=== PATIENT | female | born 1950 | race Caucasian/White ===

== ENCOUNTER 2024-10-14 09:42 | Day surgery (SDC) | payer OTHER ==
[2024-10-09 13:57] LABS: Absolute Basophils 0.2 K/uL (0-0.5); Absolute Eosinophils 0.8 K/uL (0-0.5); Absolute Lymphocytes (CBC) 2.5 K/uL (0.7-4.9); Absolute Monocytes 0.9 K/uL (0.1-1.3); Absolute Neutrophil 12.6 K/uL (1.8-8.0); Eosinophils % 4.5 % (0-4.4); Hematocrit 35.7 % (36.0-45.0); Hemoglobin 11.5 g/dL (12.0-15.0); Lymphocytes % 14.7 % (15.3-44.8); MCH 26.5 pg (27.0-35.0); MCHC 32.3 g/dL (32.0-36.0); MPV 6.3 fL (7.6-11.3); Monocytes % 5.3 % (3.3-12.3); Neutrophils % 74.5 % (41.7-73.7); Platelets 597 thou/uL (152-406); RBC Red Blood Cell Count 4.35 M/uL (3.86-4.86); Red Cell Distribution Width 15.1 % (12.1-15.2)
[2024-10-09 14:00] LABS: PT Prothrombin Time 11.9 SECONDS (9.4-12.5); Protime INR 1.06
[2024-10-09 14:11] LABS: Anion Gap 9.6 mEq/L (5.0-15.0); Potassium 4.6 mEq/L (3.5-5.1)
--- NOTE | 2024-10-09 14:41 | RAD REPORT ---
Procedure: Chest Pa And Lat (2 Views) HISTORY: Preop for genitourinary surgery. Hypertension COMPARISON: none FINDINGS: The lungs appear clear of acute infiltrate. No significant pleural effusion noted. The heart is normal size. IMPRESSION: No acute abnormality is displayed.
[2024-10-09 15:23] LABS: Band Neutrophils 4 % (0-1); Differential Total Cells Count 100; Eosinophils 9 % (0-3); Lymphocytes 15 % (15-42); Monocytes 6 % (0-10); Segmented Neutrophils 65 % (40-80)
[2024-10-09 15:24] LABS: Blood Morphology Comment NOT SEEN (NOT SEEN); Platelet Estimate INCR
--- NOTE | 2024-10-13 11:11 | EKG ---
Test Date: 2024-10-09 Test Time: 14:40:40 Caul Fat Puller: LEVY MEASUREMENT RESULTS: Intervals: Rate: 82 WV: 152 QRSD: 96 QT: 388 QTc: 453 [place]: P: 54 WV: 152 QRS: -6 T: 90 INTERPRETIVE STATEMENTS: Normal sinus rhythm Inferior infarct, age undetermined Abnormal ECG No previous ECG available for comparison Electronically Signed On 10-13-24 11:07:48 [employer]LEY [employer]IN[employer] by Giorgio Vicente
[2024-10-14] MEDS: NA CHLORIDE 0.9% 1,000 ML ONE (10:48)
[2024-10-14] MEDS ORDERED: FENTANYL CITR 100 MCG/2 ML ONE (13:54)
[2024-10-14] MEDS ORDERED: MIDAZOLAM HCL 2 MG/2 ML INJ ONE (13:54)
[2024-10-14] MEDS ORDERED: LIDOCAINE 1% MPF 5 ML VIAL ONE (13:54)
[2024-10-14] MEDS ORDERED: KETOROLAC 30 MG/ML INJ ONE (13:54)
[2024-10-14] MEDS ORDERED: ONDANSETRON 4 MG/2 ML VIAL ONE (13:54)
[2024-10-14] MEDS ORDERED: propofoL 200 MG/20 ML VIAL IV ONE (13:54)
[2024-10-14] MEDS ORDERED: EPHEDRINE SULF 50 MG/ML VIAL ONE (13:55)
[2024-10-14] MEDS ORDERED: GENTAMICIN 80 MG/100 ML BAG 240 MG/300 ML BAG IV ONE (14:07)
[2024-10-14] MEDS ORDERED: CODEINE 30MG/APAP 300MG TAB PO PRN (15:13)
[2024-10-14] MEDS ORDERED: PHENAZOPYRIDINE 100MG TAB PO ONE ×2 (15:13→16:06)
--- NOTE | 2024-10-14 15:31 | P.OP ---
Date of Service: 10/14/24 Preoperative diagnoses: Bilateral hydronephrosis Recurrent UTIs Postoperative diagnoses: Chronic cystitis Recurrent UTIs Bilateral ureteral obstruction apparently due to extrinsic compression Bilateral pelviectasis Principal procedures: Cystoscopy Right retrograde pyelography Right 7 [place] ureteral stent placement Left retrograde pyelography Left 7 [place] by 24 cm ureteral stent placement Urethral Chopra catheter exchange Indication for procedure: 73-year-old woman seen by me with bilateral hydronephrosis associated with large volume incomplete emptying and evidence of chronic cystitis with recurrent UTIs. Despite prolonged catheterization, ultrasound suggest the presence of ongoing hydronephrosis. As a result, she required definitive operative evaluation and management. Procedure note: The patient was consented in the preoperative holding area before being transferred to the operative suite where general anesthesia was induced. She was given a prescription for ciprofloxacin 500 mg p.o. twice daily, which she started yesterday and took a dose this morning. As a result, she was given an additional 2 to 3 mg/kg of IV gentamicin, 240 mg, as perioperative prophylaxis. Pneumoboots were provided for DVT prophylaxis. She was placed in the lithotomy position, padded and secured to the table appropriately. Her genitalia was prepped with Hibiclens and she was draped in standard fashion. The case was begun using a 22 [place] rigid cystoscope to traverse the urethra and into her bladder with ease. The bladder was decompressed of fluid and urine and surveyed in its entirety filled with sterile saline. There was evidence of mild ongoing chronic cystitis throughout the bladder. Bladder was not markedly trabeculated and there were no cellules, mucosal lesions, foreign bodies or stones. The ureteral orifices were orthotopic in location. I cannulated the right ureteral orifice first using the tip of a 5 [place] ureteral access catheter with ease. Right retrograde pyelography: Using a 70: 30 mixture of Omnipaque and saline, contrast was injected via the lumen of the 5 [place] ureteral access catheter and did propagate into the distal before making a slow transition into the mid and ultimately into the proximal ureter before finally entering the renal pelvis and calyces in a markedly delayed fashion. While there was evidence of some mild pelviectasis, there was no significant caliectasis as they were sharp without blunting. There was no evidence of a filling defect anywhere along the course of the ureters or within the renal pelvis or calyces. In fact, the pelvis did decompress relatively appropriately. Ureteral dilatation was noted. As a result, I passed a sensor wire via the 5 [place] ureteral access catheter and coiled the wire in the upper pole calyx of the right kidney. Over the wire, I passed a 7 [place] by 24 cm double-J ureteral stent with a coil that did coil within the renal pelvis. An additional coil was formed in her bladder. I then turned my attention to the patient's left side. I similarly cannulated the left ureteral orifice using the tip of the 5 [place] ureteral access catheter and there was no obstruction. Left retrograde pyelography: Using a 70: 30 mixture of Omnipaque and saline, contrast was injected via the lumen of the 5 [place] ureteral access catheter and did propagate into the distal before making a slow transition into the mid and ultimately into the proximal ureter before finally entering the renal pelvis and calyces in a markedly delayed fashion. While there was evidence of some mild pelviectasis, there was no significant caliectasis as they were sharp without blunting. There was no evidence of a filling defect anywhere along the course of the ureters or within the renal pelvis or calyces. In fact, the pelvis did decompress relatively appropriately, but there was a nodular appearance along the course of the ureter with ureteral dilatation noted. As a result, I passed a sensor wire via the 5 [place] ureteral access catheter and coiled the wire in the upper pole calyx of the left kidney. Over the wire, I passed a 7 [place] by 24 cm double-J ureteral stent with a coil that did coil within the renal pelvis. An additional coil was formed in her bladder. I then placed a new 16 [place] urethral Chopra catheter into her bladder with ease and placed 15 cc of sterile water in the balloon. The catheter was allowed to decompress and then connected to a floor bag. She was taken out of the lithotomy position, awakened from general anesthesia, transferred to a stretcher, and then transferred to the recovery room in good condition. Complications: None Discharge disposition: Given the extrinsic ureteral compression observed bilaterally, I suspect the presence of retroperitoneal fibrosis. To that end, I would like for her to obtain an MRI of the abdomen and pelvis with and without contrast specifically to assess for extrinsic compression of the ureters and rule out retroperitoneal fibrosis. Thereafter, she may follow-up with me in the urology clinic to review the MRI and determine whether we will plan immediate cystoscopy with bilateral stents extraction or subsequent definitive management like ureterolysis. Further, she will be given a voiding trial prior to discharge from the recovery room. Regardless as to whether she is successful with the voiding trial, surveillance urine culture should be obtained approximately 2 weeks prior to scheduled follow-up with me in case we will plan to remove the stents; so that we can determine appropriate antimicrobial prophylaxis.
--- NOTE | 2024-10-14 15:35 | RAD REPORT ---
EXAMUrography Retrograde CLINICAL HISTORY: Bilateral ureteral stent placement FINDINGS: A total of 19 images were sent to PACS, during a fluoroscopically guided retrograde urethrocystograp hy. No radiologist was involved in protocoling or performance of the study, and no radiologist was present for the duration of the procedure. No interpretation of the saved images will be provided. Total fluoroscopy time: 10.4 minutes
[2024-10-14 15:42] VITALS: BP 110/53; TEMP 97; O2SAT 95
== END 2024-10-14 16:40 | disposition home or self-care (01) ==
LOC: OR 09:42
PROVIDERS: ATTEND Urology
PROC: 0T788DZ Dilation of Bilateral Ureters with Intraluminal Device, Via Natural or Artificial Opening Endoscopic (ICD-10-PCS; principal; 2024-10-14 14:32)
DX: N13.30 Unspecified hydronephrosis (principal); N30.20 Other chronic cystitis without hematuria; N13.1 Hydronephrosis with ureteral stricture, not elsewhere classified; R33.9 Retention of urine, unspecified; Z87.440 Personal history of urinary (tract) infections
CPT/HCPCS: 93005; 87088; 85025; 87086; 80048; 36415; 85610; 82947 ×2; 87077 ×2; 87186 ×2; 71046; 74420; 52332; J2704; J2003; J2250; J3010; J2405; J7030; J1580

== ENCOUNTER 2025-02-15 18:47 | Inpatient (IN) | payer OTHER ==
--- OUTSIDE RECORDS SUMMARY | 2025-02-15 18:50 | XMS REPORT | Continuity of Care Document ---
Author Name Unknown Address [address] [facility] [address] [place] [address] [facility] Address [address] [facility] [address] [place] [address] Care Team Providers Care Strap Setter Name Role Phone Floresita Cooper Attending Clinician Unavailable FLORESITA COOPER Attending Clinician Unavailable CALVIN HOPE Attending Clinician Unavailable A_Byrd Attending Clinician Unavailable BEATRIZ TAVERAS Admitting Clinician Unavailable A_Byrd Admitting Clinician Unavailable Payers Payer Name Policy Type Policy Number Effective Date Expirati on Date Source [employer] (MEDICARE REPLACEMENT/ADVANTAGE - PPO) [id number] Problems Condition Name Condition Details Condition Category Status Onset Date Resolution Date Last Treatment Date Treating Clinician Comments Source Disorder of pancreas Disorder of Pancreas Problem Active 01-08 00:00: 00 [facility] Neurogenic urinary bladder Neurogenic Urinary Bladder Problem Active 01-08 00:00: 00 [facility] Congestive heart failure Congestive Heart Failure Problem Active 2023-10 00:00: 00 [facility] Recurrent urinary tract infection Recurrent Urinary Tract Infection Problem Active 2023-10 00:00: 00 [facility] Sepsis due to urinary tract infection Sepsis Due to Urinary Tract Infection Problem Active 03-18 00:00: 00 [facility] Unsteady when walking Unsteady When Walking Problem Active 01-16 00:00: 00 [facility] Mixed hyperlipid emia Mixed Hyperlipid emia Problem Active 12-18 00:00: 00 [facility] Body mass index 30+ - obesity Body Mass Index 30+ - Obesity Problem Active 12-18 00:00: 00 [facility] Benign essential hypertensi on Benign Essential Hypertensi on Problem Active 12-18 00:00: 00 [facility] Hypothyroi dism Hypothyroi dism Problem Active 12-18 00:00: 00 [facility] Type 2 diabetes mellitus without complicati on Type 2 Diabetes Mellitus without Complicati on Problem Active 12-18 00:00: 00 [facility] [id number] Bilateral hydronephr osis Problem [facility] [id number] Urinary tract infection, site not specified Problem [facility] [id number] Adrenal myelolipom a Problem [facility] [id number] Lower urinary tract symptoms (LUTS) Problem [facility] [id number] Kidney lesion, point hope ira, left Problem [facility] [id number] Cellulitis of abdominal wall Problem [facility] [id number] Infection, Serratia Problem [facility] Ureteral obstructio n Ureteral obstructio n Problem [facility] Chronic cystitis Chronic cystitis Problem [facility] Disorder of kidney and/or ureter Pelviectas is Problem [facility] [id number] Kidney stone Problem [facility] [id number] DSD (detrusor and sphincter dyssynergi a) Problem [facility] [id number] Detrusor instabilit y Problem [facility] [id number] Obstructio n of both ureters Problem [facility] [id number] Abscess Problem [facility] [id number] Urinary retention Problem [facility] Allergies, Adverse Reactions, Alerts Allergy Name Allergy Type Status Severity Reaction(s) Onset Date Inactive Date Treating Clinician Comments Source PENICILL INS Allergy to substanc e Active Severe Other [facility] [id number] Drug allergy Active Unknown [facility] Social History Social Habit Start Date Stop Date Quantity Comments Source Sex Assigned At [facility] History of Tobacco Use [facility] Smoking Status Start Date Stop Date Source Never Smoker [facility] Medications Ordered Medication Name Filled Medication Name Start Date Stop Date Current Medication? Ordering Clinician Indication Dosage Frequency Signature (SIG) Comments Components Source True Metrix Air Glucose Meter USE DIRECTED True Metrix Air Glucose Meter USE DIRECTED No True Metrix Air Glucose Meter USE DIRECTED [facility] furosemide 20 mg tablet Take 1 tablet every day by oral route in the morning for 30 days, for fluid retention. furosemide 20 mg tablet Take 1 tablet every day by oral route in the morning for 30 days, for fluid retention. No 1 Q1D furosemide 20 mg tablet Take 1 tablet every day by oral route in the morning for 30 days, for fluid retention. [facility] cefdinir 300 mg capsule DIRECTED ORALLY TWICE A DAY START 10/11/24, IN PREP FOR SURGERY SUNDAY 5 DAYS cefdinir 300 mg capsule DIRECTED ORALLY TWICE A DAY START 10/11/24, IN PREP FOR SURGERY SUNDAY 5 DAYS No cefdinir 300 mg capsule DIRECTED ORALLY TWICE A DAY START 10/11/24, IN PREP FOR SURGERY SUNDAY 5 DAYS [facility] ketorolac 0.5 % eye drops PLACE 1 DROP IN SURGICAL EYE 3 TIMES A DAY X 1 MONTH ketorolac 0.5 % eye drops PLACE 1 DROP IN SURGICAL EYE 3 TIMES A DAY X 1 MONTH No ketorolac 0.5 % eye drops PLACE 1 DROP IN SURGICAL EYE 3 TIMES A DAY X 1 MONTH [facility] moxifloxaci n 0.5 % eye drops 1 DROP IN SURGICAL EYE 3 TIMES A DAY X 1 WEEK moxifloxaci n 0.5 % eye drops 1 DROP IN SURGICAL EYE 3 TIMES A DAY X 1 WEEK No moxifloxac in 0.5 % eye drops 1 DROP IN SURGICAL EYE 3 TIMES A DAY X 1 WEEK [facility] prednisolon e acetate 1 % eye drops,suspe nsion INSTILL 1 DROP IN SURGICAL EYE FOUR TIMES DAILY X 1 WEEK, TAPER BY 1 DROP EACH WEEK prednisolon e acetate 1 % eye drops,suspe nsion INSTILL 1 DROP IN SURGICAL EYE FOUR TIMES DAILY X 1 WEEK, TAPER BY 1 DROP EACH WEEK No prednisolo ne acetate 1 % eye drops,susp ension INSTILL 1 DROP IN SURGICAL EYE FOUR TIMES DAILY X 1 WEEK, TAPER BY 1 DROP EACH WEEK [facility] alendronate 70 mg tablet Take 1 tablet every week by oral route. alendronate 70 mg tablet Take 1 tablet every week by oral route. No 1 Q1W alendronat e 70 mg tablet Take 1 tablet every week by oral route. [facility] amlodipine 5 mg tablet Take 1 tablet every day by oral route. amlodipine 5 mg tablet Take 1 tablet every day by oral route. No 1 Q1D amlodipine 5 mg tablet Take 1 tablet every day by oral route. [facility] atenolol 50 mg tablet Take 1 tablet every day by oral route. atenolol 50 mg tablet Take 1 tablet every day by oral route. No 1 Q1D atenolol 50 mg tablet Take 1 tablet every day by oral route. [facility] atorvastati n 10 mg tablet Take 1 tablet every day by oral route. atorvastati n 10 mg tablet Take 1 tablet every day by oral route. No 1 Q1D atorvastat in 10 mg tablet Take 1 tablet every day by oral route. [facility] gabapentin 300 mg capsule Take 1 capsule twice a day by oral route. gabapentin 300 mg capsule Take 1 capsule twice a day by oral route. No 1capsul e(s) BID gabapentin 300 mg capsule Take 1 capsule twice a day by oral route. [facility] glipizide 5 mg tablet TAKE 1 TABLET BY MOUTH TWICE DAILY 30 MINS BEFORE BREAKFAST AND DINNER glipizide 5 mg tablet TAKE 1 TABLET BY MOUTH TWICE DAILY 30 MINS BEFORE BREAKFAST AND DINNER No glipizide 5 mg tablet TAKE 1 TABLET BY MOUTH TWICE DAILY 30 MINS BEFORE BREAKFAST AND DINNER [facility] levothyroxi ne 175 mcg tablet TAKE 1 TABLET BY MOUTH ONCE DAILY 30 MINS BEFORE BREAKFAST levothyroxi ne 175 mcg tablet TAKE 1 TABLET BY MOUTH ONCE DAILY 30 MINS BEFORE BREAKFAST No levothyrox ine 175 mcg tablet TAKE 1 TABLET BY MOUTH ONCE DAILY 30 MINS BEFORE BREAKFAST [facility] lisinopril 40 mg tablet Take 1 tablet every day by oral route. lisinopril 40 mg tablet Take 1 tablet every day by oral route. No 1 Q1D lisinopril 40 mg tablet Take 1 tablet every day by oral route. [facility] metformin 500 mg tablet TAKE 1 tablet in the morning 1 at lunch and 2 at night for diabetes metformin 500 mg tablet TAKE 1 tablet in the morning 1 at lunch and 2 at night for diabetes No metformin 500 mg tablet TAKE 1 tablet in the morning 1 at lunch and 2 at night for diabetes [facility] Ozempic 1 mg/dose (4 mg/3 mL) subcutaneou s pen injector INJECT 1MG UNDER THE SKIN ONE TIME WEEKLY Ozempic 1 mg/dose (4 mg/3 mL) subcutaneou s pen injector INJECT 1MG UNDER THE SKIN ONE TIME WEEKLY No 1mg Q1W Ozempic 1 mg/dose (4 mg/3 mL) subcutaneo us pen injector INJECT 1MG UNDER THE SKIN ONE TIME WEEKLY [facility] Probiotic Acidophilus Probiotic Acidophilus No Probiotic Acidophilu s [facility] triamcinolo ne acetonide 0.1 % topical cream APPLY A THIN LAYER TO THE AFFECTED AREA(S) TOPICALLY TWICE DAILY NEEDED FOR RASH triamcinolo ne acetonide 0.1 % topical cream APPLY A THIN LAYER TO THE AFFECTED AREA(S) TOPICALLY TWICE DAILY NEEDED FOR RASH No triamcinol one acetonide 0.1 % topical cream APPLY A THIN LAYER TO THE AFFECTED AREA(S) TOPICALLY TWICE DAILY NEEDED FOR RASH [facility] Gabapentin 100 MG Gabapentin 100 MG No 1{capsu le} QD Gabapentin 100 MG Alendronate Sodium 70 MG Alendronate Sodium 70 MG No Alendronat e Sodium 70 MG Gabapentin 300 MG Gabapentin 300 MG No 1{capsu le} QD Gabapentin 300 MG Atenolol 50 MG Atenolol 50 MG No 1{table t} QD Atenolol 50 MG Ozempic (1 MG/DOSE) 4 MG/3ML Ozempic (1 MG/DOSE) 4 MG/3ML No Ozempic (1 MG/DOSE) 4 MG/3ML amLODIPine Besylate 5 MG amLODIPine Besylate 5 MG No 1{table t} QD amLODIPine Besylate 5 MG Lisinopril 40 MG Lisinopril 40 MG No 1{table t} QD Lisinopril 40 MG Atorvastati n Calcium 10 MG Atorvastati n Calcium 10 MG No 1{table t} QD Atorvastat in Calcium 10 MG glipiZIDE 5 MG glipiZIDE 5 MG No QD glipiZIDE 5 MG Levothyroxi ne Sodium 175 MCG Levothyroxi ne Sodium 175 MCG No QD Levothyrox ine Sodium 175 MCG metFORMIN HCl 500 MG metFORMIN HCl 500 MG No 1{table t_with_ a_meal} QD metFORMIN HCl 500 MG Immunizations Ordered Immunization Name Filled Immunization Name Date Status Comments Source influenza, trivalent, adjuvanted influenza, trivalent, adjuvanted Unknown Completed [facility] COVID-19 (SARS-COV-2) vaccine, unspecified COVID-19 (SARS-COV-2) vaccine, unspecified Unknown Completed [facility] Vital Signs Vital Name Observation Time Observation Value Comments S ource height 2025-02-05 10:45:00 62.5 [in_i] Comm on [facility] weight 2025-02-05 10:45:00 175 [lb_av] Comm on [facility] temperature 2025-02-05 10:45:00 98.6 [degF] Com mon [facility] bmi 2025-02-05 10:45:00 31.49 kg/m2 Comm on [facility] oximetry 2025-02-05 10:45:00 96 % Commo n [facility] respiratory rate 2025-02-05 10:45:00 18 /min [facility] blood pressure systolic 2025-02-05 10:45:00 132 mm[Hg] [facility] blood pressure diastolic 2025-02-05 10:45:00 60 mm[Hg] [facility] BP Diastolic 2025-01-08 00:00:00 72 mm[Hg] [facility] BP Systolic 2025-01-08 00:00:00 146 mm[Hg] [facility] Body Weight 2025-01-08 00:00:00 2878.4 [oz_av] [facility] Height 2025-01-08 00:00:00 62 [in_i] [facility] BMI (Body Mass Index) 2025-01-08 00:00:00 32.9 kg/m2 [facility] height 2024-12-03 11:30:00 62.5 [in_i] Comm on [facility] weight 2024-12-03 11:30:00 179.6 [lb_av] [facility] 2024-12-03 11:30:00 98.3 [degF] Com mon [facility] bmi 2024-12-03 11:30:00 32.32 kg/m2 Comm on [facility] oximetry 2024-12-03 11:30:00 94 % Commo n [facility] respiratory rate 2024-12-03 11:30:00 16 /min [facility] blood pressure systolic 2024-12-03 11:30:00 131 mm[Hg] [facility] blood pressure diastolic 2024-12-03 11:30:00 64 mm[Hg] [facility] respiratory rate 2024-09-11 13:15:00 18 /min [facility] blood pressure systolic 2024-09-11 13:15:00 137 mm[Hg] [facility] blood pressure diastolic 2024-09-11 13:15:00 67 mm[Hg] [facility] height 2024-09-11 13:15:00 62.5 [in_i] Comm on [facility] weight 2024-09-11 13:15:00 175 [lb_av] Comm on [facility] temperature 2024-09-11 13:15:00 98.6 [degF] Com mon [facility] bmi 2024-09-11 13:15:00 31.49 kg/m2 Comm on [facility] oximetry 2024-09-11 13:15:00 95 % Commo n [facility] BMI (Body Mass Index) 2024-08-26 00:00:00 33.3 kg/m2 [facility] BP Diastolic 2024-08-26 00:00:00 79 mm[Hg] [facility] Height 2024-08-26 00:00:00 62 [in_i] [facility] BP Systolic 2024-08-26 00:00:00 140 mm[Hg] [facility] Body Weight 2024-08-26 00:00:00 2908.8 [oz_av] [facility] height 2024-08-20 10:45:00 62.5 [in_i] Comm on [facility] weight 2024-08-20 10:45:00 180.0 [lb_av] Co mmon [facility] temperature 2024-08-20 10:45:00 98.1 [degF] Com mon [facility] bmi 2024-08-20 10:45:00 32.39 kg/m2 Comm on [facility] oximetry 2024-08-20 10:45:00 96 % Commo n [facility] respiratory rate 2024-08-20 10:45:00 18 /min [facility] blood pressure systolic 2024-08-20 10:45:00 120 mm[Hg] [facility] blood pressure diastolic 2024-08-20 10:45:00 74 mm[Hg] [facility] BMI (Body Mass Index) 2024-08-12 00:00:00 33.2 kg/m2 [facility] BP Systolic 2024-08-12 00:00:00 115 mm[Hg] [facility] BP Diastolic 2024-08-12 00:00:00 60 mm[Hg] [facility] Height 2024-08-12 00:00:00 62 [in_i] [facility] Body Weight 2024-08-12 00:00:00 2901 [oz_av] [facility] Height 2024-03-18 00:00:00 62 [in_i] [facility] BMI (Body Mass Index) 2024-03-18 00:00:00 32.2 kg/m2 [facility] BP Systolic 2024-03-18 00:00:00 133 mm[Hg] [facility] BP Diastolic 2024-03-18 00:00:00 73 mm[Hg] [facility] Body Weight 2024-03-18 00:00:00 2818 [oz_av] [facility] Body Weight 2024-01-17 00:00:00 2777.6 [oz_av] [facility] BMI (Body Mass Index) 2024-01-17 00:00:00 31.8 kg/m2 [facility] Height 2024-01-17 00:00:00 62 [in_i] [facility] BP Diastolic 2024-01-17 00:00:00 87 mm[Hg] [facility] BP Systolic 2024-01-17 00:00:00 170 mm[Hg] [facility] Body Weight 2023-12-18 00:00:00 2854.4 [oz_av] [facility] Height 2023-12-18 00:00:00 62 [in_i] [facility] BP Systolic 2023-12-18 00:00:00 155 mm[Hg] [facility] BP Diastolic 2023-12-18 00:00:00 82 mm[Hg] [facility] BMI (Body Mass Index) 2023-12-18 00:00:00 32.6 kg/m2 [facility] Procedures Procedure Date / Time Performed Performing Clinician Source Bladder Suspension [facility] Complete Repair of Rotator Cuff [facility] Hernia Repair [facility] Tonsillectomy [facility] Appendectomy [facility] Encounters Start Date/Time End Date/Time Encounter Type Admission Type Attending Clinicians Care Facility Care Department Encounter ID Source 2024-10-21 11:19:00 Outpatient [facility] [id number] [facility] 2024-06-19 08:49:03 Outpatient Flores[facility] Cooper [facility] [id number] [facility] 2025-02-05 00:00:00 2025-02-05 00:00:00 OFFICE VISIT ESTAB PT LEVEL 4 [facility] STLMLC [id number] [facility] 2025-01-08 00:00:00 2025-01-08 00:00:00 Floresita Cooper MD: [address] [place] [address], [address], [place] [address] , Ph. [facility] [id number] [facility] 2024-12-30 00:00:00 2024-12-30 00:00:00 ([place]) Nurse Visit [facility] STL[facility]C [id number] [facility] 2024-12-03 00:00:00 2024-12-03 00:00:00 OFFICE VISIT ESTAB PT LEVEL 4 [facility] STLMLC [id number] [facility] 2024-11-19 00:00:00 2024-11-19 00:00:00 (PROC) Procedure STLMLC STLMLC [id number] [facility] 2024-11-18 00:00:00 2024-11-18 00:00:00 ([place]) Nurse Visit [facility] STLC [id number] [facility] 2024-09-11 00:00:00 2024-09-11 00:00:00 OFFICE VISIT ESTAB PT LEVEL 3 [facility]C STLMLC [id number] [facility] 2024-08-26 00:00:00 2024-08-26 00:00:00 Floresita Cooper MD: [address], [address], [place] [address] , Ph. [facility] [id number] 1105 [facility] 2024-08-20 00:00:00 2024-08-20 00:00:00 OFFICE VISIT ESTAB PT LEVEL 4 [facility]C [id number] [facility] 2024-08-20 00:00:00 2024-08-20 00:00:00 (TEL) [facility]LMLC STLMLC [id number] [facility] 2024-08-12 11:06:00 2024-08-12 11:06:00 Outpatient FLORESITA KATZ [facility] [id number] [facility] 2024-08-12 00:00:00 2024-08-12 00:00:00 Floresita Cooper MD: [address], [address], [place] [address] , Ph. [facility] [id number] 1022 [facility] 2024-06-19 00:00:00 2024-06-19 00:00:00 ([place]) Nurse Visit [facility]LMLC STLMLC [id number] [facility] 2024-03-18 00:00:00 2024-03-18 00:00:00 Floresita Cooper MD: [address], [address], [place] [address] , Ph. [facility] [id number] [facility] 2024-03-06 15:07:00 2024-03-09 16:37:00 Inpatient [facility] [id number] 37 [facility] 2024-01-17 00:00:00 2024-01-17 00:00:00 Floresita Cooper MD: [address], [address], [place] [address] , Ph. [facility] [id number] 0328 [facility] 2024-01-16 00:00:00 2024-01-16 00:00:00 Outpatient A_Byrd [facility] [id number] [facility] 2023-12-19 00:00:00 2023-12-19 00:00:00 [facility] [id number] [facility] 2023-12-18 00:00:00 2023-12-18 00:00:00 Outpatient [facility] [id number] [facility] 2023-12-18 00:00:00 2023-12-18 00:00:00 Floresita Cooper MD: [address] [place] [address], [address] [address] , Ph. [facility] [id number] [facility] 2023-12-15 00:00:00 2023-12-15 00:00:00 Outpatient A_Byrd [facility] [id number] [facility] 2023-12-12 00:00:00 2023-12-12 00:00:00 Outpatient A_Byrd [facility] [id number] [facility] Results Test Description Test Time Test Comments Results Result Co mments Source culture,urine pres id [id number] 08:54:00* Test Item Value Reference Range Interpretation Comme nts culture,urine (test code = culture,urine) 70,000 COL/CC GRAM NEG RODS X2. [id number] 08:54:00* Test Item Value Reference Range Interpretation Comme nts gentamicin (test code = gentamicin) <=2 ampicillin (test code = ampicillin) >16 amoxacillin/clavulanate (linda t code = amoxacillin/clavulanate) >16/8 tobramycin (test code = tobramycin) 4 nitrofurantoin (test code = nitrofurantoin) >64 cefoxitin (test code = cefoxitin) >16 levofloxacin (test code = levofloxacin) <=0.5 ceftazidime (test code = ceftazidime) 4 ceftriaxone (test code = ceftriaxone) <=1 ciprofloxacin (test code = ciprofloxacin) <=0.25 ampicillin/sulbactam (test c ode = ampicillin/sulbactam) >16/8 ceftazidime-avibactam (test code = ceftazidime-avibactam) 1/4 ertapenem (test code = ertapenem) <=0.25 aztreonam (test code = aztreonam) 8 cefepime (test code = cefepime) 2 cefuroxime (test code = cefuroxime) >16 meropenem (test code = meropenem) 1 pip/tazo (test code = pip/tazo) 8/4 amikacin (test code = amikacin) 16 [facility] [id number] 12:28:00* Test Item Value Reference Range Interpretation Comme nts thyroid stimulating hormone L (test code = thyroid stimulating hormone L) 0.28 uIU/mL 0.36-3.74 L [facility] (T[facility]) free [Mass/volume] in Serum or Plasma 2024-08-12 12:28:00* Test Item Value Reference Range Interpretation Comme nts free T4 (test code = free T4) 1.76 NG/dL 0.92-1.68 H [facility] pro natriuretic [id number] 12:21:00* Test Item Value Reference Range Interpretation Comme nts N-term pro natriuretic pepti de (test code = N-term pro natriuretic peptide) 847 pg/mL 0-125 H [facility] 2000 [facility] - Serum or Plasma 2024-08-12 12:14:00* Test Item Value Reference Range Interpretation Comme nts glucose (test code = glucose) 191 mg/dL 82-115 H blood urea nitrogen (test co de = blood urea nitrogen) 29 mg/dL 8-23 H osmolality calculated,serum (test code = osmolality calculated,serum) 281 mOsm/kg 280-300 creatinine (test code = creatinine) 1.12 mg/dL 0.50-0.90 H glomerular filtration rate ( test code = glomerular filtration rate) 47.69 L BUN/creatinine ratio (test c ode = BUN/creatinine ratio) 25.9 12.0-20.0 H sodium level (test code = so dium level) 135 mmol/L 135-145 potassium level (test code = potassium level) 5.2 mmol/L 3.5-5.2 chloride level (test code = chloride level) 103 mmol/L 98-108 CO2 (test code = CO2) 18 mmol/L 21-32 L anion gap (test code = anion gap) 19.2 mEq/L 12.0-20.0 calcium level (test code = calcium level) 9.8 mg/dL 8.8-10.2 total protein (test code = t otal protein) 7.4 g/dL 6.6-8.7 albumin (test code = albumin) 3.7 g/dL 3.5-5.2 globulin (test code = globulin) 3.7 g/dL 1.5-4.5 A/G ratio (test code = A/G ratio) 1.0 >1.0 bilirubin,total (test code = bilirubin,total) 0.3 mg/dL 0.0-1.2 AST/SGOT (test code = AST/SGOT) 10 U/L 15-32 L ALT/SGPT (test code = ALT/SGPT) 10 U/L 0-33 alkaline phosphatase, total (test code = alkaline phosphatase, total) 65 U/L 35-[address] [facility] GroupMagnesium [Mass/volume] in Serum or [id number] 12:14:00* Test Item Value Reference Range Interpretation Comme nts magnesium level (test code = magnesium level) 1.5 mg/dL 1.6-2.[address] [facility] Grouplipid panel, [id number] 12:14:00* Test Item Value Reference Range Interpretation Comme nts cholesterol level (test code = cholesterol level) 128 mg/dL 150-200 L triglycerides level (test co de = triglycerides level) 121 mg/dL <150 HDL cholesterol (test code = HDL cholesterol) 43 mg/dL >65 L LDL cholesterol direct (test code = LDL cholesterol direct) 68 mg/dL <100 cholesterol risk ratio (test code = cholesterol risk ratio) 2.976 [facility] [Mass/volume] in [id number] 12:11:00* Test Item Value Reference Range Interpretation Comme nts microalbumin random (test co de = microalbumin random) 160.9 mg/L 0-20 H [facility] [id number] 12:04:00* Test Item Value Reference Range Interpretation Comme nts Hemoglobin A1c/Hemoglobin.to dannie in Blood (test code = 4548-4) 8.6 % 4.0-6.0 H [facility] [id number] 11:55:00* Test Item Value Reference Range Interpretation Comme nts color, urine (test code = co debra, urine) Yellow appearance, urine (test code = appearance, urine) Turbid clear urine glucose (test code = u rine glucose) Negative negative bilirubin, urine (test code = bilirubin, urine) Negative negative ketone, urine (test code = k etone, urine) Negative negative specific gravity,urine (test code = specific gravity,urine) 1.008 1.003-1.030 blood urine (test code = blo od urine) 1+ (SMALL) negative A pH,urine (test code = pH,urine) 6.000 5-9 protein urine (UA) (test cod e = protein urine (UA)) 1+ negative A urobilinogen, urine (test co de = urobilinogen, urine) 0.2 mg/dL 0.2-1.0 nitrate, urine (test code = nitrate, urine) Negative negative RBC, urine (test code = RBC, urine) 0-2 0-5 WBC, urine (test code = WBC, urine) >100 0-5 epithelial cell (test code = epithelial cell) 0-2 0-5 bacteria, urine (test code = bacteria, urine) Occasional none detect casts,urine (test code = casts,urine) 0-2 none detect A urine leukocyte esterase (te st code = urine leukocyte esterase) 3+ negative A urine culture added? (test c ode = urine culture added?) YES [facility] W Auto Differential panel - [id number] 11:39:00 * Test Item Value Reference Range Interpretation Comme nts white blood count (test code = white blood count) 14.7 K/uL 4.0-11.5 H red blood count (test code = red blood count) 4.30 M/uL 3.80-5.20 hemoglobin (test code = hemoglobin) 11.3 g/dL 10.5-15.7 hematocrit (test code = hematocrit) 35.7 % 34.0-50.0 mean corpuscular volume (linda t code = mean corpuscular volume) 83.0 fL 86.0-100.0 L mean corpuscular hemoglobin (test code = mean corpuscular hemoglobin) 26.3 pg 26.2-33.4 mean corpuscular HGB conc (t est code = mean corpuscular HGB conc) 31.7 g/dL 30.0-34.0 red cell distribution width (test code = red cell distribution width) 13.3 % 12.0-15.5 platelet count (test code = platelet count) 357 K/uL 165-450 mean platelet volume (test c ode = mean platelet volume) 8.9 fL 9.4-12.6 L neutrophils % (test code = neutrophils %) 70.3 % 44.4-80.1 Ig% (test code = Ig%) 0.6 % 0.0-0.4 H lymphocyte% (test code = lymphocyte%) 15.7 % 10.0-50.0 mono % (test code = mono %) 8.0 % 3.6-12.0 eos % (test code = eos %) 4.4 % 0.0-5.4 basophil % (test code = baso serena %) 1.0 % 0.1-1.2 absolute neutrophil count (t est code = absolute neutrophil count) 10.32 K/uL 1.56-6.13 H Ig# (test code = Ig#) 0.09 K/uL 0.00-0.03 H lymph # (test code = lymph #) 2.30 K/uL 1.18-3.74 mono # (test code = mono #) 1.18 K/uL 0.24-0.86 H eos # (test code = eos #) 0.65 K/uL 0.04-0.36 H basophil # (test code = baso serena #) 0.14 K/uL 0.01-0.08 H NRBC% (test code = NRBC%) 0 /100 WBC 0-0.2 NRBC# (test code = NRBC#) 0 K/uL [facility]25-Hydroxyvitamin D3+25-Hydroxyvitamin D2 [Mass/volume] in Serum or [id number] 00:00:00* Test Item Value Reference Range Interpretation Comme nts vit D 25 hydroxy (test code = vit D 25 hydroxy) 44.92 NG/mL >30 [facility]
[2025-02-15 19:32] LABS: Specific Gravity 1.006 (1.005-1.030); Sqamous Epithelial None Seen /HPF (None Seen); Urine Bacteria <20 /HPF (<20); Urine Bilirubin NEGATIVE (Negative); Urine Blood 3+ (Negative); Urine Clarity Extremely Turbid (Clear); Urine Color Light-Yellow (Yellow); Urine Crystals Unidentified Few /HPF (None Seen); Urine Glucose 3+ (Negative); Urine Ketones NEGATIVE (Negative); Urine Nitrite NEGATIVE (Negative); Urine Protein 1+ (Negative); Urine RBC 21-50 /HPF (None Seen); Urine Urobilinogen Normal (Normal); Urine WBC >50 /HPF (<5); Urine WBC Clump Occasional /HPF (None Seen); Urine pH 6.5 (5.0-7.0)
[2025-02-15 21:16] LABS: Absolute Basophils 0.1 K/uL (0-0.5); Absolute Eosinophils 0.1 K/uL (0-0.5); Absolute Lymphocytes (CBC) 1.4 K/uL (0.7-4.9); Absolute Monocytes 1.6 K/uL (0.1-1.3); Absolute Neutrophil 15.1 K/uL (1.8-8.0); Basophils % 0.6 % (0-1.3); Eosinophils % 0.8 % (0-4.4); Hematocrit 38.5 % (36.0-45.0); Hemoglobin 13.3 g/dL (12.0-15.0); Lymphocytes % 7.4 % (15.3-44.8); MCH 27.7 pg (27.0-35.0); MCHC 34.5 g/dL (32.0-36.0); MCV 80.2 fL (80-100); MPV 7.2 fL (7.6-11.3); Monocytes % 8.6 % (3.3-12.3); Neutrophils % 82.6 % (41.7-73.7); Platelets 333 thou/uL (152-406); Red Cell Distribution Width 13.8 % (12.1-15.2)
[2025-02-15] MEDS ORDERED: MORPHINE 4 MG/ML SYR ONE (21:25)
[2025-02-15] MEDS ORDERED: ONDANSETRON 4 MG/2 ML VIAL ONE (21:25)
[2025-02-15 21:34] LABS: Anion Gap 11.7 mEq/L (5.0-15.0); Bilirubin Total 0.3 mg/dL (0.2-1.0); Globulin 3.9 g/dL (2.3-3.5); Potassium 4.7 mEq/L (3.5-5.1); Protein, Total 7.9 g/dL (6.4-8.2)
--- NOTE | 2025-02-15 22:10 | RAD REPORT ---
EXAMINATION: CT ABDOMEN AND PELVIS WITH CONTRAST CLINICAL INDICATION: FLANK PAIN TECHNIQUE: CT abdomen and pelvis was performed, after the administration of IV contrast, as per [facility]. Axial, sagittal and coronal reconstructions were obtained. One or more of the following dose reduction techniques were used: Automated exposure control, adjustment of the mA and k V according to patient size, and iterative reconstruction. Unless otherwise specified, incidental findings do not require dedicated imaging follow-up. COMPARISON: No prior exam. FINDINGS: LOWER CHEST: The visualized lung bases are clear. Small hiatal hernia. LIVER: Mild fatty liver is present. Small low-density lesion near the superior aspect of the right lo be liver measuring 5 mm probably benign. No aggressive liver lesion or biliary dilatation.. Cholelithiasis. SPLEEN: Normal size. No focal lesion. PANCREAS: No mass, ductal dilation, or kp-pancreatic fluid. ADRENALS: Normal; no mass. KIDNEYS: Bilateral double-J stents are in place with mild uroepithelial thickening bilaterally. The w all of the urinary bladder is mildly thickened with air present. GASTROINTESTINAL TRACT: No evidence of free air, significant intra-abdominal free fluid, bowel obstru ction or abscess. APPENDIX: Appendix surgically absent. LYMPH NODES: No lymphadenopathy. MUSCULOSKELETAL: Multilevel thoracolumbar degenerative changes. Prominent posterior disc bulging lowe r lumbar spine. ADDITIONAL FINDINGS: Urinary catheter is noted, bulb is somewhat inferiorly positioned in the urinary bladder. IMPRESSION: Cholelithiasis. Bilateral double-J stents with air in the urinary bladder. This can be related to recent instrumentat ion or infection.
[2025-02-15] MEDS ORDERED: ACETAMINOPHEN 500 MG TAB PO PRN (23:31)
[2025-02-15] MEDS ORDERED: ONDANSETRON 4 MG/2 ML VIAL IV PRN (23:31)
--- NOTE | 2025-02-15 23:38 | P.HP ---
Certification for Inpatient Patient admitted to: Inpatient With expected LOS: >2 Midnights Patient will require the following post-hospital care: None Practitioner: I am a practitioner with admitting privileges, knowledge of patient current condition, hospital course, and medical plan of care. Services: Services provided to patient in accordance with Admission requirements found in Title 42 Section 412.3 of the Code of Federal Regulations Patient History Date of Service: 02/15/25 Reason for admission: Urinary tract infection with a J stent placement History of Present Illness: Patient is a 74-year-old female who the hospital with a UTI. Patient has had a prior bilateral J stent placement around [place] time, and since that time patient had been doing fairly well up until this episode of becoming febrile with dysuria. Patient was also confused and patient was brought into the emergency room for further evaluation. In the ER patient was given IV fluids and IV antibiotics. By time I had seen the patient and she was feeling much better. She is more awake and alert and she feels like she is back to her baseline. Unfortunately, she does have a significant lactic acidosis in the setting of a acute infection with a foreign body which is the J stent patient will need more aggressive IV antibiotic therapy and will need to wait for cult ure results. Will consult urology for possible removal of the J stent. Patient will be admitted to the hospital for inpatient hospitalization. Will continue with aggressive IV fluids and recheck lactic acid level. Continue to monitor hemodynamics closely. Allergies Penicillins Allergy (Verified 10/09/24 13:21) unknown Home Medications: Alendronate Sodium 70 mg PO EVERY 7TH DAY 10/09/24 Amlodipine Besylate 5 mg PO DAILY 10/09/24 Atorvastatin Calcium [Lipitor*] 10 mg PO DAILY 10/09/24 Cetirizine HCl [Zyrtec] 10 mg PO BID 10/09/24 Furosemide [Lasix*] 20 mg PO DAILY 10/09/24 Gabapentin 300 mg PO BID 10/09/24 L. Acidophilus/Bifid. Animalis [Probiotic 5 Billion Cell Cap] 1 each PO DAILY 10/09/24 Levothyroxine Sodium 175 mcg PO DAILY 10/09/24 Metformin HCl [Glucophage*] 1,000 mg PO DAILY AT SUPPER 10/09/24 Metformin HCl [Glucophage*] 500 mg PO LUNCH 10/09/24 Semaglutide [Ozempic] 0.25 mg SQ EVERY 7TH DAY 10/09/24 atenoloL [Atenolol] 50 mg PO DAILY 10/09/24 glipiZIDE [Glipizide] 2 tab PO BID 10/09/24 lisinopriL [Zestril] 40 mg PO DAILY 10/09/24 - Past Medical/Surgical History -: Type 2 diabetes -: Hypothyroidism -: Hypertension -: Osteoporosis -: Hyperlipidemia -: Neuropathy -: Chronic cystitis -: J stent placement - Family History Father Family History: Reviewed- Non-Contributory - Social History Smoking Status: Never smoker Alcohol use: No CD- Drugs: No Review of Systems 10-point ROS is otherwise unremarkable Physical Examination - Vital Signs Temperature: 99.8 F Blood Pressure: 130/80 Pulse: 90 Respirations: 20 Pulse Ox (%): 95 - Physical Exam General: Alert, In no apparent distress, Oriented x3 HEENT: Atraumatic, PERRLA, Mucous membr. moist/pink, EOMI, Sclerae nonicteric Neck: Supple, 2+ carotid pulse no bruit, No LAD, Without JVD or thyroid abnormality Respiratory: Clear to auscultation bilaterally, Normal air movement Cardiovascular: Regular rate/rhythm, Normal S1 S2, No murmurs Gastrointestinal: Normal bowel sounds, Soft and benign, Non-distended, No rebound, No guarding, Tenderness Musculoskeletal: No clubbing, No swelling, No tenderness Integumentary: No rashes Neurological: Normal speech, Normal tone, Sensation intact, Cranial nerves 3-12 intact, Normal affect, Abnormal gait, Abnormal strength Lymphatics: No axilla or inguinal lymphadenopathy - Studies Laboratory Data (last 24 hrs) 02/15/25 02/15/25 21:07 21:07 WBC 18.30 H Hgb 13.3 Hct 38.5 Plt Count 333 Sodium 132 L Potassium 4.7 BUN 15 Creatinine 1.33 H Glucose 218 H Total Bilirubin 0.3 AST 14 L ALT 34 Alkaline Phosphatase 55 Assessment & Plan - Problems (Diagnosis) (1) Acute urinary tract infection Current Visit: Yes Status: Acute (2) Presence of double-J stent Current Visit: Yes Status: Acute (3) Lactic acidosis Current Visit: Yes Status: Acute (4) HTN (hypertension) Current Visit: Yes Status: Acute (5) Hyperlipemia Current Visit: Yes Status: Acute (6) DM2 (diabetes mellitus, type 2) Current Visit: Yes Status: Acute (7) Hypothyroid Current Visit: Yes Status: Acute - Plan Plan: 1. Patient with acute urinary tract infection with a history of double-J stent placement around [place]; will consult urology and this may need to be removed. Continue with IV fluids and IV antibiotics. Urine cultures are pending. Patient with a lactic acidosis and will monitor lactic acid after IV hydration. Awaiting culture results 2. Metabolic syndrome; strict blood pressure and blood sugar control and continue with statin therapy. Continue with levothyroxine for hypothyroidism 3. Lactic acidosis in the setting of a acute urinary tract infection with leukocytosis; most likely related to early sepsis/SIRS; continue with aggressive IV hydration and repeat lactic acid level. Awaiting culture results. 4. GI DVT prophylaxis Discharge Plan: Home Plan to discharge in: Greater than 2 days - Advance Directives Does patient have a Living Will: No Does patient have a Durable POA for Healthcare: No - Code Status/Comfort Care Code Status Assessed: Yes Code Status: Full Code Critical Care: No Time Spent Managing PTS Care (In Minutes): 45
[2025-02-15] MEDS: NA CHLORIDE 0.9% 1,000 ML IV SCH (23:45)
[2025-02-16] MEDS ORDERED: NA CHLORIDE 0.9% 100 ML ONE (00:04)
[2025-02-16] MEDS ORDERED: CEFEPIME 2 GM VIAL ONE (00:04)
[2025-02-16] MEDS ORDERED: NA CHLORIDE 0.9% 1,000 ML ONE ×2 (00:04→03:27)
--- NOTE | 2025-02-16 00:08 | ER ---
Nurse's Notes [facility] Name: Tere Velez Age: 74 yrs Sex: Female : 1950 Arrival Date: 02/15/2025 Time: 18:47 Bed 6 Private MD: Diagnosis: Urinary tract infection;Sepsis Presentation: 02/15 19:09 Chief complaint: Patient states: had catheter changed on Sunday, nurse had al5 complications replacing catheter. patient states she had bleeding for few days. c/o intermittent flank pain bilaterally since catheter change. Coronavirus screen: At this time, the client does not indicate any symptoms associated with coronavirus-19. Ebola Screen: No symptoms or risks identified at this time. Initial Sepsis Screen: Does the patient meet any 2 criteria? HR > 90 bpm. No. Patient's initial sepsis screen is negative. Does the patient have a suspected source of infection? No. Patient's initial sepsis screen is negative. Risk Assessment: Do you want to hurt yourself or someone else? Patient reports no desire to harm self or others. Note patient has elder catheter with clear yellow urine. Onset of symptoms was February 10, 2025. 19:09 Method Of Arrival: Wheelchair al5 19:09 Acuity: ASHLEY 3 al5 Triage Assessment: 19:12 General: Appears in no apparent distress. uncomfortable, Behavior is calm, cooperative. al5 Pain: Complains of pain in left mid back and right mid back Pain currently is 10 out of 10 on a pain scale. EENT: No signs and/or symptoms were reported regarding the EENT system. Neuro: Level of Consciousness is awake, alert, obeys commands, Oriented to person, place, time, situation. Cardiovascular: Capillary refill < 3 seconds Patient's skin is warm and dry. Respiratory: Airway is patent Respiratory effort is even, unlabored, Respiratory pattern is regular, symmetrical. GI: No signs and/or symptoms were reported involving the gastrointestinal system. : Elder in place to gravity drainage clamped Reports pain in bilateral flank(s). Derm: Skin is intact, is healthy with good turgor, Skin is pink, warm \T\ dry. normal. Musculoskeletal: No signs and/or symptoms reported regarding the musculoskeletal system. Historical: - Allergies: 19:11 PENICILLINS; al5 - PMHx: 19:11 Diabetes mellitus; Hypertensive disorder; Hypothyroidism; al5 - PSHx: 19:11 Thyroidectomy; Appendectomy; hernia repair; al5 - Immunization history:: Adult Immunizations up to date. - Infectious Disease History:: Denies. CDIFF, . - Social history:: Smoking status: Patient denies any tobacco usage or history of. - Family history:: not pertinent. Screenin:14 [facility] ED Fall Risk Assessment (Adult) History of falling in the last 3 months, al5 including since admission No falls in past 3 months (0 pts) Confusion or Disorientation No (0 pts) Intoxicated or Sedated No (0 pts) Impaired Gait Yes (1 pt) Mobility Assist Device Used Yes (1 pt) Altered Elimination Yes (1 pt) Score/Fall Risk Level 3 or more points = High Risk Maintained a safe environment. Abuse screen: Denies threats or abuse. Denies injuries from another. Nutritional screening: No deficits noted. Tuberculosis screening: No symptoms or risk factors identified. Assessment: 19:14 Reassessment: see triage assessment. al5 Vital Signs: 19:09 BP 152 / 91; Pulse 98; Resp 18; Temp 99; Pulse Ox 96% on R/A; Weight 79.38 kg; Height 5 al5 ft. 2 in. ; Pain 10/10; 02/16 00:02 BP 132 / 64; Pulse 96; Resp 18; Pulse Ox 99% ; cp4 02/15 19:09 Body Mass Index 32.01 (79.38 kg, 157.48 cm) al5 02/15 19:09 Pain Scale: Adult al5 ED Course: 02/15 18:53 Patient arrived in ED. sj2 18:59 Connor Siddiqui MD is Attending Physician. rt 19:11 Triage completed. al5 19:13 Arm band placed on right wrist. Patient placed in waiting room, Patient notified of al5 wait time. 19:14 Patient has correct armband on for positive identification. Provided Education on: al5 notification of wait time. 19:14 No provider procedures requiring assistance completed. al5 22:00 CT Abd/Pelvis - IV Contrast Only In Process Unspecified. EDMS 23:21 Lilliam Rao is Primary Nurse. cp4 23:31 First set of blood cultures drawn by me. oe 23:54 Second set of blood cultures drawn by me. oe 02/16 00:01 Inserted saline lock: 22 gauge in left forearm, using aseptic technique. Blood oe collected. Flushed with 10 mL NS. 00:02 Blood Culture Adult (2) Sent. oe 00:02 Lactate w/ 2H reflex if indic. Sent. oe 00:02 Protime (+inr) Sent. oe 00:02 Ptt, Activated Sent. oe 00:07 Emanuel Rene MD is Hospitalizing Provider. rt 02:24 Patient admitted, IV remains in place. cp4 Administered Medications: 02/15 21:38 Drug: morphine IVP or IV 4 mg IVP once over 4 mins Route: IVP; Infused Over: 4 mins; ha1 Site: right antecubital; 21:38 Drug: Ondansetron IVP 4 mg IVP once; over 2 minutes Route: IVP; Site: right antecubital;ha1 02/16 00:11 Drug: Cefepime IVPB 2 grams IVPB at 200 ml/hr once over 30 mins; (mix in NS 100 mL) cp4 Route: IVPB; Rate: 200 ml/hr; Infused Over: 30 mins; Site: left forearm; 00:48 Follow up: IV Status: Completed infusion cp4 00:11 Drug: NS 0.9% IV 1000 ml IV at 1000 ml once; to be given as a bolus over 60 minutes cp4 Route: IV; Rate: 1000 ml; Site: left forearm; 02:26 Follow up: IV Status: Completed infusion cp4 Medication: 02/15 19:14 VIS not applicable for this client. al5 Outcome: 02/16 00:07 Decision to Hospitalize by Provider. rt 02:23 Admitted to ER Hold. Please see [facility] for further documentation. cp4 02:23 Condition: stable 02:23 Instructed on the need for admit, 04:15 Patient left the ED. cp4 Signatures: Dispatcher [employer] EDMS Marty Asencio oe Mel Goodson RN RN ha1 Connor Siddiqui MD MD rt Lilliam Rao cp4 Maddison Perez RN RN al5 Ancelmo Dodd 2
--- NOTE | 2025-02-16 00:08 | EDPHYS ---
Physician Documentation [facility] Name: Tere Velez Age: 74 yrs Sex: Female : 1950 Arrival Date: 02/15/2025 Time: 18:47 Bed 6 Private MD: ED Physician Connor Siddiqui HPI: 02/15 19:18 This 74 yrs old Female presents to ER via Wheelchair with complaints of KIDNEY rt PROBLEM/PAIN. 19:18 On Sunday, patient had her urinary catheter replaced, states that there is have rt difficulty with replacement. States that following that point, she had some bleeding that is since resolved. The patient reports a pain at the insertion site as well as a bilateral flank pain. Denies fever, chills, acute complaints, symptoms are moderate in severity, no other aggravating or alleviating factors.. Historical: - Allergies: 19:11 PENICILLINS; al5 - PMHx: 19:11 Diabetes mellitus; Hypertensive disorder; Hypothyroidism; al5 - PSHx: 19:11 Thyroidectomy; Appendectomy; hernia repair; al5 - Immunization history:: Adult Immunizations up to date. - Infectious Disease History:: Denies. CDIFF, . - Social history:: Smoking status: Patient denies any tobacco usage or history of. - Family history:: not pertinent. ROS: 19:18 Constitutional: Negative for fever, chills, and weight loss, Cardiovascular: Negative rt for chest pain, palpitations, and edema, Respiratory: Negative for shortness of breath, cough, wheezing, and pleuritic chest pain, MS/Extremity: Negative for injury and deformity, Skin: Negative for injury, rash, and discoloration, Neuro: Negative for headache, weakness, numbness, tingling, and seizure, 19:18 Abdomen/GI: Positive for abdominal pain, Negative for nausea and vomiting, Exam: 19:18 Constitutional: This is a well developed, well nourished patient who is awake, alert, rt and in no acute distress. Head/Face: Normocephalic, atraumatic. Chest/axilla: Normal chest wall appearance and motion. Nontender with no deformity. No lesions are appreciated. Cardiovascular: Regular rate and rhythm with a normal S1 and S2. No gallops, murmurs, or rubs. Normal PMI, no JVD. No pulse deficits. Respiratory: Lungs have equal breath sounds bilaterally, clear to auscultation and percussion. No rales, rhonchi or wheezes noted. No increased work of breathing, no retractions or nasal flaring. Abdomen/GI: Soft, non-tender, with normal bowel sounds. No distension or tympany. No guarding or rebound. No evidence of tenderness throughout. Skin: Warm, dry with normal turgor. Normal color with no rashes, no lesions, and no evidence of cellulitis. MS/ Extremity: Pulses equal, no cyanosis. Neurovascular intact. Full, normal range of motion. 23:12 ECG was reviewed by the Attending Physician. rt Vital Signs: 19:09 BP 152 / 91; Pulse 98; Resp 18; Temp 99; Pulse Ox 96% on R/A; Weight 79.38 kg; Height 5 al5 ft. 2 in. ; Pain 10/10; 02/16 00:02 BP 132 / 64; Pulse 96; Resp 18; Pulse Ox 99% ; cp4 02/15 19:09 Body Mass Index 32.01 (79.38 kg, 157.48 cm) al5 02/15 19:09 Pain Scale: Adult al5 MDM: 02/15 19:17 Medical Screening Exam initiated rt 02/16 00:45 Differential Diagnosis UTI, Chopra catheter insertion complication, hydronephrosis. Data rt reviewed: vital signs, nurses notes, lab test result(s), EKG, radiologic studies. Consideration of Admission/Observation Patient was admitted/placed on observation. Management of patient was discussed with the following: Hospitalist: Agrees to admit. I considered the following discharge prescriptions or medication management in the emergency department Medications were administered in the Emergency Department. See MAR. Independent interpretation of the following test(s) in the Emergency Department CT Scan: My interpretation is No hydronephrosis seen on interpretation of CT scan images. Care significantly affected by the following chronic conditions: Diabetes, Hypertension. Post IV fluid administration reassessment for Sepsis: Sepsis focused reassessment complete. Focused assessment performed: February 16, 2025 at 00:00 Heart: Regular rate/rhythm. Lungs: noted to be clear bilaterally. Capillary refill examination performed. Capillary refill noted to be brisk. Skin examination performed. Skin noted to be pink. Cardio: Cardiovascular exam improved from previous exam. Heart rate and blood pressure have improved. Counseling: I had a detailed discussion with the patient and/or guardian regarding the historical points, exam findings, and any diagnostic results supporting the discharge/admit diagnosis, lab results, radiology results, the need for further work-up and treatment in the hospital. Response to treatment: the patient's symptoms have mildly improved after treatment. ED course: Patient's initial presentation was not due to infectious etiology, once urinalysis was returned, leukocytosis was identified, patient related to respiratory, then blood cultures, IV antibiotics were ordered. 02/15 19:18 Order name: CBC with Diff; Complete Time: 21:52 rt 02/15 19:18 Order name: CMP; Complete Time: 21:52 rt 02/15 19:18 Order name: UAM rt 02/15 22:18 Order name: Blood Culture Adult (2) rt 02/15 22:18 Order name: Lactate w/ 2H reflex if indic. rt 02/15 22:18 Order name: Protime (+inr) rt 02/15 22:18 Order name: Ptt, Activated rt 02/15 23:38 Order name: CBC with Automated Diff EDDE 02/15 23:38 Order name: Comprehensive Metabolic Panel EDDE 02/16 00:11 Order name: Glucose, Ancillary Testing EDDE 02/16 02:31 Order name: Ghost Lactate-NO COLLECT Timer EDDE 02/16 04:02 Order name: Lactate Sepsis 2 HR Follow-up EDDE 02/15 19:18 Order name: CT Abd/Pelvis - IV Contrast Only; Complete Time: 22:11 rt 02/15 23:38 Order name: CONS Physician Consult EDDE 02/15 22:18 Order name: Accucheck; Complete Time: 23:19 rt 02/15 22:18 Order name: Cardiac monitoring; Complete Time: 23:19 rt 02/15 22:18 Order name: EKG - Nurse/Tech; Complete Time: 23:19 rt 02/15 22:18 Order name: IV Saline Lock - Large Bore; Complete Time: 23:19 rt 02/15 22:18 Order name: Labs collected and sent; Complete Time: 23:19 rt 02/15 22:18 Order name: O2 Per Protocol; Complete Time: 23:19 rt 02/15 22:18 Order name: O2 Sat Monitoring; Complete Time: 23:19 rt 02/15 22:18 Order name: Vital Signs; Complete Time: 23:19 rt EC/27 23:12 Rate is 107 beats/min. Rhythm is regular, Sinus tachycardia with No ectopy. QRS Benedict is rt Normal. ND interval is normal. QRS interval is normal. QT interval is normal. No Q waves. No ST changes noted. Interpreted by me. Administered Medications: 21:38 Drug: morphine IVP or IV 4 mg IVP once over 4 mins Route: IVP; Infused Over: 4 mins; ha1 Site: right antecubital; 21:38 Drug: Ondansetron IVP 4 mg IVP once; over 2 minutes Route: IVP; Site: right antecubital;ha1 02/16 00:11 Drug: Cefepime IVPB 2 grams IVPB at 200 ml/hr once over 30 mins; (mix in NS 100 mL) cp4 Route: IVPB; Rate: 200 ml/hr; Infused Over: 30 mins; Site: left forearm; 00:48 Follow up: IV Status: Completed infusion cp4 00:11 Drug: NS 0.9% IV 1000 ml IV at 1000 ml once; to be given as a bolus over 60 minutes cp4 Route: IV; Rate: 1000 ml; Site: left forearm; 02:26 Follow up: IV Status: Completed infusion cp4 Disposition Summary: 02/16/25 00:07 Hospitalization Ordered Notes: Hospitalization Status: Inpatient Admission rt Provider: Emanuel Rene rt Condition: Stable rt Problem: new rt Symptoms: have improved rt Bed/Room Type: Standard rt [facility] 03[facility]08[facility] Room Assignment: [employer](02/16/25 03:08) Diagnosis - Urinary tract infection rt - Sepsis rt Forms: - Medication Reconciliation Form rt - SBAR form rt - Leadership Thank You Letter rt Critical care time excluding procedures: 00:45 Critical care time: Bedside Care: 30 minutes, Consultation: 5 minutes. Total time: 35 rt minutes Signatures: Dispatcher [employer] Larissa Almeida RN RN Mel Goodson RN RN ha1 Connor Siddiqui MD MD rt Lizzeth Swann Christina cp4 Maddison Perez RN RN al5 Corrections: (The following items were deleted from the chart) 02/15 19:18 19:18 Abdomen Pelvis W Con+CT.RAD.BRZ ordered. EDMS EDMS 22: 22:19 BLOOD CULTURE*+BA.LAB.BRZ ordered. EDMS EDMS 22: 22:19 LACTATE+C.LAB.BRZ ordered. EDMS EDMS : 22:19 PROTIME (+INR)+COAG.LAB.BRZ ordered. EDMS EDMS : 22:19 PTT, ACTIVATED+COAG.LAB.BRZ ordered. EDMS EDMS 02/16 00:16 00:07 Telemetry/MedSurg (Inpatient) rt rv1 00:16 00:07 rt rv1 03:08 00:16 [facility] ER HOLD rv1 cg 03:08 00:16 ERHOLD- rv1 cg
[2025-02-16 00:23] LABS: PT Prothrombin Time 11.6 SECONDS (10-13.0); PTT, Activated Partial Thromb 29.8 SECONDS (27.2-37.4); Protime INR 1.02
[2025-02-16 00:59] VITALS: BMI 32.0
[2025-02-16] MEDS: VANCOMYCIN 1.5 GM in NA CHLORIDE 0.9% 500 ML IVPB ONE (04:30)
[2025-02-16] MEDS: VANCOMYCIN 1.5 GM in NA CHLORIDE 0.9% 500 ML IVPB SCH (05:00)
[2025-02-16] MEDS: VANCOMYCIN 1 GM/VIAL ONE (05:08)
[2025-02-16] MEDS: NA CHLORIDE 0.9% 500 ML ONE (05:08)
[2025-02-16] MEDS: NA CHLORIDE 0.9% 500 ML IV ONE (05:13)
[2025-02-16 07:57] LABS: ALT/SGPT 26 U/L (13-56); Albumin 3.1 g/dL (3.4-5.0); Albumin/Globulin Ratio 0.9 (1.1-1.8); Alkaline Phosphatase 44 U/L (45-117); Anion Gap 9.7 mEq/L (5.0-15.0); BUN Blood Urea Nitrogen 13 mg/dL (7-18); Bicarbonate 22 mEq/L (21-32); Bilirubin Total 0.4 mg/dL (0.2-1.0); Globulin 3.3 g/dL (2.3-3.5); Glomerular Filtration Rate 52 ml/min (=/>90); Glucose Level 159 mg/dL (74-106); Potassium 4.7 mEq/L (3.5-5.1); Protein, Total 6.4 g/dL (6.4-8.2); Sodium Level 135 mEq/L (136-145)
[2025-02-16 07:58] LABS: AST/SGOT < 10 U/L (15-37)
[2025-02-16 08:30] LABS: Absolute Basophils 0.1 K/uL (0-0.5); Absolute Lymphocytes (CBC) 2.2 K/uL (0.7-4.9); Absolute Monocytes 1.7 K/uL (0.1-1.3); Absolute Neutrophil 12.7 K/uL (1.8-8.0); Basophils % 0.5 % (0-1.3); Eosinophils % 0.3 % (0-4.4); Hematocrit 35.1 % (36.0-45.0); Hemoglobin 11.8 g/dL (12.0-15.0); Lymphocytes % 13.3 % (15.3-44.8); MCH 27.4 pg (27.0-35.0); MCHC 33.7 g/dL (32.0-36.0); MCV 81.2 fL (80-100); MPV 7.1 fL (7.6-11.3); Monocytes % 10.3 % (3.3-12.3); Neutrophils % 75.6 % (41.7-73.7); Platelets 274 thou/uL (152-406); RBC Red Blood Cell Count 4.32 M/uL (3.86-4.86); Red Cell Distribution Width 13.7 % (12.1-15.2)
--- NOTE | 2025-02-16 09:23 | P.PN ---
Date of Service: 02/16/25 Subjective: This morning she felt a gush of fluid while watching tv associated with some pelvic pain called by nursing staff. came to bedside and elder bulb was outside her urethra Had Double-J stents placed Sep 2024. Had been doing okay up until a few days ago when she had elder replaced 02/10 by nursing staff has been dealing with intermittent flank pain, suprapubic pain associated with mild hematuria at home since elder replacement 02/10 Physical Exam: GEN: Alert, oriented, NAD CV: Regular rate and rhythm, no edema Pulm: Nonlabored respirations on room air, clear bilaterally ABD: soft, flank pain, suprapubic tenderness, nondistended Neuro: Normal speech, normal affect Problem List: Dysuria secondary to UTI Hx Double-J stent placement (Sep 2024) OSMAR Hypertension Hyperlipidemia Hypothyroidism IDDM2 Dysuria secondary to UTI Hx Double-J stent placement (Sep 2024) on admission, she presents with dysuria, bilateral flank pain, associated with confusion and mild hematuria at home. Had Double-J stents placed Sep 2024. Had been doing okay up until a few days ago when she had elder replaced 02/10 by nursing staff states the nurse who replaced cath had difficulty with insertion She reports some pain/discomfort since insertion associated with mild bleeding Urology consulted on admission, although Dr. Abbott is reportedly at a conference out of town until ~Sunday Empiric Rocephin / vanc (02/16-) Leukocytosis improving, Lactic acid improving ID consulted IV fluids, pain control 02/16 - This morning patient felt a gush of fluid while watching tv associated with some suprapubic pain called by nursing staff this morning. Came to bedside and elder bulb was outside her urethra Replace with new elder follow urine and blood cultures OSMAR continue to monitor renal function Given IV fluids in ED. Continue IV fluids Hypertension Hyperlipidemia Hypothyroidism IDDM2 confirm home meds, restart as appropriate Code: Full Dispo: Home , ~2-3 days Time Spent Managing Pts Care (In Minutes): 55
[2025-02-16] MEDS: CEFTRIAXONE 1,000 MG in NA CHLORIDE 0.9% 50 ML IVPB SCH (09:24)
[2025-02-16 09:44] LABS: Urine Culture Reflex Order REFLEXED
[2025-02-16 09:57] LABS: Urine Microscopic Reflex YN ORDER UMIC
--- NOTE | 2025-02-16 12:07 | EKG ---
Test Date: 2025-02-15 Test Time: 23:00:27 Sour Bleaching Pleater: RADHA MEASUREMENT RESULTS: Intervals: Rate: 107 RI: 166 QRSD: 94 QT: 346 QTc: 461 Sheridan: P: 54 RI: 166 QRS: -25 T: 94 INTERPRETIVE STATEMENTS: Sinus tachycardia Inferior infarct, age undetermined Possible Anterolateral infarct, age undetermined Abnormal ECG Compared to ECG 10/09/2024 14:40:40 Sinus rhythm no longer present Myocardial infarct finding still present Electronically Signed On 02-16-25 12:06:24 CDT by Giorgio Vicente
[2025-02-16] MEDS: GABAPENTIN 300 MG CAP PO SCH (20:09)
[2025-02-17] MEDS: LEVOTHYROXINE SOD 0.075 MG TAB PO SCH (06:07)
[2025-02-17] MEDS: LEVOTHYROXINE SOD 0.1 MG TAB PO SCH (06:07)
[2025-02-17 06:28] LABS: Absolute Basophils 0.1 K/uL (0-0.5); Absolute Eosinophils 0.7 K/uL (0-0.5); Absolute Lymphocytes (CBC) 2.4 K/uL (0.7-4.9); Absolute Monocytes 1.2 K/uL (0.1-1.3); Absolute Neutrophil 6.7 K/uL (1.8-8.0); Basophils % 0.9 % (0-1.3); Eosinophils % 6.2 % (0-4.4); Hematocrit 31.1 % (36.0-45.0); Hemoglobin 10.7 g/dL (12.0-15.0); Lymphocytes % 21.5 % (15.3-44.8); MCH 28.1 pg (27.0-35.0); MCHC 34.6 g/dL (32.0-36.0); MCV 81.2 fL (80-100); MPV 7.4 fL (7.6-11.3); Neutrophils % 60.4 % (41.7-73.7); Nucleated Red Blood Cells % 0.1 % (0-0); Platelets 225 thou/uL (152-406); RBC Red Blood Cell Count 3.83 M/uL (3.86-4.86); Red Cell Distribution Width 13.7 % (12.1-15.2)
[2025-02-17 07:24] LABS: ALT/SGPT 20 U/L (13-56); Albumin 2.7 g/dL (3.4-5.0); Albumin/Globulin Ratio 0.8 (1.1-1.8); Alkaline Phosphatase 41 U/L (45-117); Anion Gap 8.3 mEq/L (5.0-15.0); BUN Blood Urea Nitrogen 12 mg/dL (7-18); Bicarbonate 24 mEq/L (21-32); Bilirubin Total 0.2 mg/dL (0.2-1.0); Globulin 3.4 g/dL (2.3-3.5); Glomerular Filtration Rate 49 ml/min (=/>90); Glucose Level 213 mg/dL (74-106); Magnesium 1.2 mg/dL (1.6-2.4); Potassium 4.3 mEq/L (3.5-5.1); Protein, Total 6.1 g/dL (6.4-8.2); Sodium Level 137 mEq/L (136-145)
[2025-02-17 07:25] LABS: AST/SGOT < 10 U/L (15-37)
[2025-02-17] MEDS: atenoloL 50 MG TAB PO SCH (08:34)
[2025-02-17] MEDS: ATORVASTATIN 10 MG TAB PO SCH (08:34)
[2025-02-17] MEDS ORDERED: HOME MED 1 EA UNK (Levothyroxine Sodium [Levothyroxine Sodium] 175 MCG Tablet) PO SCH (09:00)
[2025-02-17] MEDS ORDERED: VANCOMYCIN 1.5 GM in NA CHLORIDE 0.9% 500 ML IVPB SCH (17:00)
--- NOTE | 2025-02-17 18:44 | P.PN ---
Subjective Date of Service: 02/17/25 Chief Complaint: Urinary tract infection with a J stent placement Patient denies any new complaint today. No recorded fever. Her urine in the urine bag looks clear. No issues overnight. Physical Examination - Vital Signs Temperature: 98.1 F Blood Pressure: 126/63 Pulse: 80 Respirations: 14 Pulse Ox (%): 96 Assessment And Plan - Plan Physical Exam: GEN: Alert, oriented, NAD CV: Regular rate and rhythm, no edema Pulm: Clear to auscultation bilaterally, adequate breath sounds bilaterally ABD: soft, nondistended, no tenderness. Neuro: Normal speech, normal affect Problem List: Dysuria secondary to UTI Hx Double-J stent placement (Sep 2024) OSMAR Hypertension Hyperlipidemia Hypothyroidism IDDM2 Complicated UTI Hx Double-J stent placement (Sep 2024) Presence of bilateral ureteral stents. Patient also has an indwelling Chopra catheter present on admission. Possible traumatic Chopra catheter insertion. Hematuria cleared. Patient's symptoms resolved after Chopra catheter bulb came out spontaneously and a new Chopra catheter placed. Urology consulted on admission, although Dr. Abbott is reportedly at a conference out of town until tomorrow. Urine culture: No growth to date. Leukocytosis significantly improved. Continue Rocephin / vanc for now. ID consulted Continue IV hydration. OSMAR Renal function improved Continue IV fluid Monitor renal function. Hypertension Hyperlipidemia Hypothyroidism IDDM2 Continue home medications. Continue to hold metformin. Continue SSI Code: Full Dispo: Home
[2025-02-17] MEDS: glipiZIDE 5 MG TAB PO SCH (20:02)
[2025-02-17] MEDS: CETIRIZINE HCL 5 MG TABLET PO ONE (22:04)
--- NOTE | 2025-02-17 23:33 | CON ---
Reason For Consultation: This is a 74-year-old female, I was consulted for urinary tract infection. History Of Present Illness: The patient is currently on Rocephin and vancomycin. The patient has be en to the hospital in the past with a history of bilateral stent placement in September, coming in wit h fever and burning urination. The patient was also confused upon arrival at emergency room. Denies any headache, nausea, vomiting, chest pain, abdominal pain, constipation, diarrhea. Past Medical History: Diabetes mellitus, hypothyroidism, hypertension, osteoporosis, hyperlipidemia, neuropathy, chronic cystitis, stent placement. Medications: Vancomycin and Rocephin. See MARs for other medications. Allergies: PENICILLIN. Social History: Nonsmoker. Nondrinker. Family History: Noncontributory. Review of Systems: Ten-point review was performed. Physical Examination: General: This is a 74-year-old female, lying in bed, not in any acute cardiopulmonary distress. Vital Signs: Temperature 98, pulse 80, respirations 14, blood pressure 126/63. HEENT: Unremarkable. Neck: Supple. Lungs: Basal crackles. Heart: S1, S2. Regular. Abdomen: Soft, nontender. Bowel sounds present. Extremities: No edema. Laboratory Data: WBC 11,000, down from 18.3; hemoglobin 10.7; platelets are 225. Chemistry shows BU N of 12, creatinine 1.1. Albumin level of 2.7. Urine culture: No growth. Blood culture in 24 hour s showed no growth. Assessment And Plan: 1. 74-year-old female with double-J stent placement in September 2024, coming in with dysuria and urin breanna tract infection, currently on vancomycin and Rocephin. We will recommend to continue Rocephin pe nding culture results. 2. Diabetes mellitus. 3. Renal insufficiency. 4. Leukocytosis. 5. Moderate protein-calorie malnourishment. Continue to monitor signs of infection with WBC and fever trends. Thank you for consult. NF/MODL Voice ID: [id number] Report ID: [id number]
[2025-02-18 06:03] LABS: Absolute Basophils 0.2 K/uL (0-0.5); Absolute Eosinophils 0.8 K/uL (0-0.5); Absolute Lymphocytes (CBC) 2.5 K/uL (0.7-4.9); Absolute Monocytes 0.9 K/uL (0.1-1.3); Absolute Neutrophil 6.1 K/uL (1.8-8.0); Basophils % 1.5 % (0-1.3); Eosinophils % 7.4 % (0-4.4); Hematocrit 29.3 % (36.0-45.0); Hemoglobin 10.1 g/dL (12.0-15.0); Lymphocytes % 23.8 % (15.3-44.8); MCH 27.8 pg (27.0-35.0); MCHC 34.6 g/dL (32.0-36.0); MCV 80.4 fL (80-100); MPV 7.5 fL (7.6-11.3); Monocytes % 8.7 % (3.3-12.3); Neutrophils % 58.6 % (41.7-73.7); Platelets 235 thou/uL (152-406); RBC Red Blood Cell Count 3.64 M/uL (3.86-4.86); Red Cell Distribution Width 13.7 % (12.1-15.2)
[2025-02-18 06:16] LABS: Anion Gap 9.1 mEq/L (5.0-15.0); Potassium 4.1 mEq/L (3.5-5.1)
[2025-02-18] MEDS: LACTOBACILLUS/ACIDOPHILUS TAB PO SCH (08:28)
[2025-02-18] MEDS: CETIRIZINE HCL 5 MG TABLET PO SCH (08:28)
[2025-02-18] MEDS: AMLODIPINE 5 MG TAB PO SCH (08:28)
[2025-02-18 09:40] VITALS: O2SAT 97
[2025-02-18] MEDS: VANCOMYCIN 1.5 GM in NA CHLORIDE 0.9% 500 ML IVPB SCH (16:47)
--- NOTE | 2025-02-18 19:06 | P.DS ---
Admission Date: 02/16/25 Discharge Date: 02/18/25 Disposition: ROUTINE DISCHARGE Discharge Condition: FAIR Reason for Admission: Urinary tract infection with a J stent placement Hospital Course: Problem List: Acute UTI-complicated Acute metabolic encephalopathy Hx Double-J stent placement (Sep 2024) OSMAR Hypertension Hyperlipidemia Hypothyroidism IDDM2 Patient presented with symptoms of dysuria and hematuria. Symptoms occurred after her Chopra catheter was replaced. Patient reports the nurse who changed the Chopra catheter had trouble inserting it and had to try multiple times. Patient reported bloody urine for a few days after the Chopra catheter was changed. Urine analysis done in the ED shows some evidence of UTI. There was concern for complicated UTI so patient was admitted for further assessment and aggressive IV antibiotics Patient was treated with IV vancomycin and Rocephin. Urine culture showed mixed growth. Chopra catheter spontaneously came out of the urethra. A new Chopra catheter was inserted after which the urine cleared of blood. Patient has remained asymptomatic since the Chopra catheter was changed. Leukocytosis has resolved, patient has been afebrile and asymptomatic. Patient request to go home. Case discussed with urology Dr. Abbott. Dr. Abbott will see patient in the office to evaluate for ureteral stent exchange. Discharged with oral Vantin and Macrobid. Dr. Abbott recommended prophylactic antibiotic therapy after patient finishes acute treatment. Dr. Abbott choice was Bactrim however patient is on lisinopril and there was significant interaction with Bactrim causing hyperkalemia so we will avoid the Bactrim and use Macrobid for antibiotic prophylaxis. Vital Signs/Physical Exam: Temp Pulse Resp BP Pulse Ox 98.2 F 86 16 148/79 H 97 02/18/25 16:00 02/18/25 16:00 02/18/25 16:00 02/18/25 16:02/18/25 16:00 General: Alert, In no apparent distress, Oriented x3 HEENT: Mucous membr. moist/pink Respiratory: Clear to auscultation bilaterally, Normal air movement Cardiovascular: No edema, Regular rate/rhythm, Normal S1 S2 Gastrointestinal: Normal bowel sounds, Soft and benign, Non-distended Musculoskeletal: No swelling Integumentary: No rashes, No cyanosis Neurological: Normal strength at 5/5 x4 extr Laboratory Data at Discharge: WBC 10.30 thou/uL (4.3-10.9) 02/18/25 05:33 Hgb 10.1 g/dL (12.0-15.0) L 02/18/25 05:33 Hct 29.3 % (36.0-45.0) L 02/18/25 05:33 Plt Count 235 thou/uL (152-406) 02/18/25 05:33 PT 11.6 SECONDS (10-13.0) 02/15/25 23:31 INR 1.02 02/15/25 23:31 APTT 29.8 SECONDS (27.2-37.4) 02/15/25 23:31 Sodium 139 mEq/L (136-145) 02/18/25 05:33 Potassium 4.1 mEq/L (3.5-5.1) 02/18/25 05:33 BUN 13 mg/dL (7-18) 02/18/25 05:33 Creatinine 0.94 mg/dL (0.55-1.02) 02/18/25 05:33 Glucose 177 mg/dL (74-106) H 02/18/25 05:33 Magnesium 1.2 mg/dL (1.6-2.4) L 02/17/25 06:00 Total Bilirubin 0.2 mg/dL (0.2-1.0) 02/17/25 06:00 AST < 10 U/L (15-37) L 02/17/25 06:00 ALT 20 U/L (13-56) 02/17/25 06:00 Alkaline Phosphatase 41 U/L (45-117) L 02/17/25 06:00 Home Medications: Alendronate Sodium 70 mg PO EVERY 7TH DAY 10/09/24 Amlodipine Besylate 5 mg PO DAILY 10/09/24 Atorvastatin Calcium [Lipitor*] 10 mg PO DAILY 10/09/24 Cetirizine HCl [Zyrtec] 10 mg PO BID 10/09/24 Furosemide [Lasix*] 20 mg PO DAILY 10/09/24 Gabapentin 300 mg PO BID 10/09/24 L. Acidophilus/Bifid. Animalis [Probiotic 5 Billion Cell Cap] 1 each PO DAILY 10/09/24 Levothyroxine Sodium 175 mcg PO DAILY 10/09/24 Metformin HCl [Glucophage*] 1,000 mg PO DAILY AT SUPPER 10/09/24 Metformin HCl [Glucophage*] 500 mg PO LUNCH 10/09/24 Semaglutide [Ozempic] 0.25 mg SQ EVERY 7TH DAY 10/09/24 atenoloL [Atenolol] 50 mg PO DAILY 10/09/24 glipiZIDE [Glipizide] 2 tab PO BID 10/09/24 lisinopriL [Zestril] 40 mg PO DAILY 10/09/24 Cefpodoxime Proxetil [Vantin] 200 mg PO BID #10 tab 02/18/25 Nitrofurantoin Monohyd/M-Cryst [Macrobid 100 mg Capsule] 100 mg PO BID #35 tab 02/18/25 New Medications: Nitrofurantoin Monohyd/M-Cryst [Macrobid 100 mg Capsule] 100 mg PO BID #35 tab Cefpodoxime Proxetil [Vantin] 200 mg PO BID #10 tab Physician Discharge Instructions: Patient presented with symptoms of dysuria and hematuria. Symptoms occurred after her Chopra catheter was replaced. Patient reports the nurse who changed the Chopra catheter had trouble inserting it and had to try multiple times. Patient reported bloody urine for a few days after the Chopra catheter was changed. Urine analysis done in the ED shows some evidence of UTI. There was concern for complicated UTI so patient was admitted for further assessment and aggressive IV antibiotics Patient was treated with IV vancomycin and Rocephin. Urine culture showed mixed growth. Chopra catheter spontaneously came out of the urethra. A new Chopra catheter was inserted after which the urine cleared of blood. Patient has remained asymptomatic since the Chopra catheter was changed. Leukocytosis has resolved, patient has been afebrile and asymptomatic. Patient request to go home. Case discussed with urology Dr. Abbott. Dr. Abbott will see patient in the office to evaluate for ureteral stent exchange. Discharged with oral Vantin and Macrobid. Dr. Abbott recommended prophylactic antibiotic therapy after patient finishes acute treatment. Dr. Abbott choice was Bactrim however patient is on lisinopril and there was significant interaction with Bactrim causing hyperkalemia so we will avoid the Bactrim and use Macrobid for antibiotic prophylaxis. Diet: ADA Activity: Fall precautions Followup: OOT,OOT [Primary Care Provider] - 1 Week Nickolas Abbott [ACTIVE - CAN ADMIT] - 1-2 Weeks (Please follow-up regarding evaluation for urethral stents exchange.) Time spent managing pt's care (in minutes): 36
--- NOTE | 2025-02-18 19:20 | P.PN ---
Subjective Date of Service: 02/18/25 Chief Complaint: Urinary tract infection with a J stent placement Patient has no new complaint and desires to go home. No recorded fever. Her urine remain clear. Physical Examination - Vital Signs Temperature: 98.2 F Blood Pressure: 148/79 Pulse: 86 Respirations: 16 Pulse Ox (%): 97 - Studies Microbiology Data (last 24 hrs): 02/15/25 19:20 Clean Catch Urine [place] Count - Final BETWEEN 10,000 & 100,000 CFU/ML 02/15/25 19:20 Clean Catch Urine - Final MIXED ROM. Assessment And Plan - Plan Physical Exam: GEN: Alert, oriented, NAD CV: Regular rate and rhythm, no edema Pulm: Clear to auscultation bilaterally, adequate breath sounds bilaterally ABD: soft, nondistended, no tenderness. Neuro: Normal speech, normal affect. Genitourinary: Chopra catheter in place. Problem List: Dysuria secondary to UTI Hx Double-J stent placement (Sep 2024) OSMAR Hypertension Hyperlipidemia Hypothyroidism IDDM2 Complicated UTI Hx Double-J stent placement (Sep 2024) Presence of bilateral ureteral stents. Patient also has an indwelling Chopra catheter present on admission. Possible traumatic Chopra catheter insertion. Hematuria cleared. Patient's symptoms resolved after Chopra catheter bulb came out spontaneously and a new Chopra catheter placed. Urology consulted on admission, although Dr. Abbott is reportedly at a conference out of town until tomorrow. Urine culture: No growth to date. Leukocytosis significantly improved. Continue Rocephin / vanc for now. ID consulted Continue IV hydration. 02/18 Patient is currently asymptomatic. Urine culture showed mixed growth. Continue IV Rocephin. Case discussed with Dr. Abbott, patient has responded to broad-spectrum antibiotics. She can discharge with oral antibiotics-Bactrim for acute UTI followed by Bactrim for UTI prophylaxis. However patient is on lisinopril which has significant interaction with Bactrim causing hyperkalemia. Patient will therefore be discharged with oral Vantin and Macrobid for acute treatment and use of Macrobid for UTI prophylaxis until she sees Dr. Zuniga for evaluation for ureteral stent removal or exchange. OSMAR Renal function improved Continue IV fluid Monitor renal function. 02/18 OSMAR resolved. Discontinue IV fluid. Hypertension Hyperlipidemia Hypothyroidism IDDM2 Continue home medications. Continue to hold metformin. Continue SSI Code: Full Dispo: Home
--- NOTE | 2025-02-18 20:33 | P.PN ---
Date of Service: 02/11/25 Subjective Review of Systems: Ten-point review was performed and negative unless stated in hpi. Denied fever/chill. denied problems with abx Objective Temp Pulse Resp BP Pulse Ox 98.2 F 86 16 148/79 H 97 02/18/25 19:20 02/18/25 19:20 02/18/25 19:20 02/18/25 19:20 02/18/25 19:20 Physical Examination: General: alert and oriented. not in any distress HEENT: supple. no JVD PERRLA Neck: Supple. Lungs: Basal crackles. Heart: S1, S2. Regular. Abdomen: Soft, nontender. Bowel sounds present. Extremities: No edema. Laboratory Data: WBC 10.3, hemoglobin 10.1; platelets are 235. Chemistry shows BUN of 13, creatinine 0.94. Albumin level of 2.7 Urine culture: No growth. Blood culture in 24 hours showed no growth. Assessment And Plan: 1. UTI with hx double-J stent placement in September 2024 2. Pyuria 3. Diabetes mellitus. 4. Renal insufficiency. 5. Leukocytosis ( Improving) 6. Moderate protein-calorie malnourishment. Continue vancomycin and rocephin pending culture result. Continue to monitor signs of infection with WBC and fever trends. will continue to monitor patient prn case round and in agreement with Dr markham
[2025-02-19 12:53] VITALS: BP 168/87; TEMP 97.8
== END 2025-02-19 13:45 | disposition home or self-care (01) | DRG 698 ==
LOC: ER 18:47 → ERHOLD 23:31 → 4TH 02-16 03:38 → OBSVTOIN 02-16 06:29
PROVIDERS: ADMIT Hospitalist; ATTEND Internal Medicine
DX: T83.592A Infection and inflammatory reaction due to indwelling ureteral stent, initial encounter (principal); A41.9 Sepsis, unspecified organism; G93.41 Metabolic encephalopathy; N39.0 Urinary tract infection, site not specified; E87.20 Acidosis, unspecified; N17.9 Acute kidney failure, unspecified; E44.0 Moderate protein-calorie malnutrition; E78.5 Hyperlipidemia, unspecified; E87.5 Hyperkalemia; E03.9 Hypothyroidism, unspecified; I10 Essential (primary) hypertension; Z88.0 Allergy status to penicillin; Z68.32 Body mass index [BMI] 32.0-32.9, adult; Z79.84 Long term (current) use of oral hypoglycemic drugs; Z79.890 Hormone replacement therapy; Z79.899 Other long term (current) drug therapy
CPT/HCPCS: 36415; 74177; 80048; 80053; 80202; 81001; 82947; 83605; 83735; 85025; 85610; 85730; 87040; 87086; 87088; 93005; 96361; 96365; 96375; 99285; G0378; J0692; J0696; J2405; J3370; J7030; J7040; Q9967